=== PATIENT | female | born 1950 | race Caucasian/White ===

== ENCOUNTER 2018-10-12 13:33 | Emergency (ER) | payer OTHER ==
[~2018-10-12] VITALS: Ht 167.6 cm; Wt 108.9 kg
[2018-10-12] MEDS ORDERED: SYNTHROID100 MC1 PO (13:51)
[2018-10-12] MEDS ORDERED: CALCIUM 600 +1 EAC1 PO (13:51)
[2018-10-12] MEDS ORDERED: B COMPLEX1 EACH PO (13:51)
[2018-10-12] MEDS ORDERED: ASPIR 8181 MG PO (13:51)
[2018-10-12] MEDS ORDERED: IBUPROFEN 800800 M1 PO (15:17)
[2018-10-12] MEDS ORDERED: PERCOCET PO (15:17)
[2018-10-12] MEDS ORDERED: NORCO 5-325 TA1 EAC1 PO (15:27)
[2018-10-12] MEDS ORDERED: ONDANSETRON HCL4 M2 PO (15:27)
[2018-10-12 16:00] VITALS: BP 150/68
== END 2018-10-12 16:00 | disposition home or self-care (01) ==
LOC: M.ERS 13:33
DX: S52.592A Other fractures of lower end of left radius, initial encounter for closed fracture (principal); S52.612A Displaced fracture of left ulna styloid process, initial encounter for closed fracture; Z85.3 Personal history of malignant neoplasm of breast; Z90.11 Acquired absence of right breast and nipple; Z88.8 Allergy status to other drugs, medicaments and biological substances; W18.39XA Other fall on same level, initial encounter; Y93.89 Activity, other specified; Y92.89 Other specified places as the place of occurrence of the external cause; Y99.8 Other external cause status

== ENCOUNTER → 2018-10-20 | Outpatient (CLI) | payer OTHER ==
[~2018-10-20] MED LIST: ASPIR 8181 MG PO; B COMPLEX1 EACH PO; CALCIUM 600 +1 EAC1 PO; IBUPROFEN 800800 M1 PO; NORCO 5-325 TA1 EAC1 PO; ONDANSETRON HCL4 M2 PO; PERCOCET PO; SYNTHROID100 MC1 PO
[2018-10-20 14:52] LABS: APTT 25.1 Seconds (25.0-31.3); PROTIME 10.7 Seconds (9.20-11.50)
== END ==
LOC: M.LAB 13:50
PROVIDERS: Orthopaedic Surgery
DX: Z51.81 Encounter for therapeutic drug level monitoring (principal); Z79.01 Long term (current) use of anticoagulants; Z86.718 Personal history of other venous thrombosis and embolism